=== PATIENT | male | born 1955 | race Caucasian/White ===

== ENCOUNTER 2023-09-03 20:20 | Observation (INO) | payer OTHER, SELFPAY ==
--- NOTE | ~2023-09-03 | CT_ITS ---
Clinical Indication: Syncope, lower extremity swelling CT Scan of the Chest with Contrast: Technique: Contiguous sections were acquired throughout the chest after intravenous administration of 100 cc of Omnipaque 350. Dose reduction technique was used on this scan by utilizing automated expos ure control and iterative reconstruction technique. The dose-length product (DLP) was 891.96 mGy-cm. Findings: There is no evidence of any significant mediastinal, hilar or axillary lymphadenopathy. There is a pr obable single small embolus within the segmental branches in the right upper lobe (axial image 67). N o other pulmonary embolus evident.. There is no evidence of aortic dissection or aneurysm. There is no evidence of pleural or pericardial effusion. The lungs are clear. No pulmonary nodules or infiltrates are noted. Images through the upper abdomen reveal calcific gallstones and suspected mild bilateral hydronephros is. Impression: Probable single small pulmonary embolus within segmental branch in the right upper lobe. Clear lungs. Reviewed, dictated and finalized at location . Impression: Probable single small pulmonary embolus within segmental branch in the right up per lobe. Clear lungs.
--- NOTE | ~2023-09-03 | XR_ITS ---
EXAMINATION: XR chest 1V portable Exam Date/Time: 09/03/2023 21:10 CDT HISTORY: syncopic episode today Comparison: 06/04/2008. RESULT: Lines, tubes, and devices: None. Lungs and pleura: Lordotic positioning. Low volumes with crowding. Streaky bibasilar atelectasis, ot herwise clear. Cardiomediastinal silhouette: Stable. Other: No acute osseous or upper abdominal finding. IMPRESSION: No acute cardiopulmonary process. Reviewed, dictated and finalized at location K.
--- NOTE | ~2023-09-03 | US_ITS ---
EXAMINATION: US venous doppler [facility] DATE: 09/04/2023 09:57 INDICATION: Left lower limb swelling. TECHNIQUE: Grayscale ultrasound images without and with compression and Doppler ultrasound images of the bilateral lower extremity veins were obtained. COMPARISON: Ultrasound 05/16/2010 FINDINGS: The visualized portions of right common femoral vein, profunda (deep) femoral vein, femoral vein, pop liteal vein, peroneal veins, posterior tibial veins, and greater saphenous vein outflow are patent. The visualized portions of left common femoral vein, profunda femoral vein, femoral vein, popliteal v ein, peroneal veins, posterior tibial veins, and greater saphenous vein outflow are patent. IMPRESSION: 1. No deep venous thrombosis. Reviewed, dictated and finalized at location E.
--- NOTE | ~2023-09-03 | CT_ITS ---
Non-contrast Head CT History: Syncope Technique: Axial non-contrast imaging of the brain was performed. Dose reduction technique was used on this scan by utilizing automated exposure control and iterative reconstruction technique. The dose -length product (DLP) was 756.67 mGy-cm. Findings: There is no evidence of intracranial hemorrhage, mass lesion, or acute infarct. Brain par enchyma appears normal. The ventricles and subarachnoid spaces are normal in size. The calvarium ap pears normal. The visualized paranasal sinuses and mastoid air cells are clear. Impression: No significant abnormality seen. Reviewed, dictated and finalized at location . Impression: No significant abnormality seen.
[2023-09-03 20:22] VITALS: BP 129/77; PULSE 78; RESP 18; TEMP 36.2; O2SAT 96
--- NOTE | 2023-09-03 20:59 | ECG_ITS ---
Measurements Intervals [place] Rate: 58 P: 68 NH: 238 QRS: -1 QRSD: 88 T: 1 QT: 376 QTc: 372 Interpretive Statements SINUS BRADYCARDIA WITH FIRST DEGREE AV BLOCK LOW QRS VOLTAGE IN PRECORDIAL LEADS [QRS DEFLECTION < 1.0 mV IN CHEST LEADS] ABNORMAL ECG NO PREVIOUS ECG AVAILABLE FOR COMPARISON Electronically Signed On 09-04-2023 8:49:51 CDT by Himanshu Villela M.D.
--- NOTE | 2023-09-03 21:18 | ED.DIZZY ---
HPI - Dizziness General Chief Complaint: Syncope <Andrzej Horne PA-C - Last Filed: 09/04/23 02:17> Stated Complaint: Syncope 2 hours ago <Andrzej Horne PA-C - Last Filed: 09/04/23 02:17> Time Seen by Provider: 09/03/23 20:44 <Andrzej Horne PA-C - Last Filed: 09/04/23 02:17> Source: patient <MARYBEL Arriola Last Filed: 09/04/23 02:17> Mode of arrival: ambulatory <MARYBEL Arriola Last Filed: 09/04/23 02:17> Limitations: no limitations <Andrzej Horne PA-C - Last Filed: 09/04/23 02:17> History of Present Illness HPI Narrative: This is a 68-year-old male with PMH of A-fib, PE, DVT, HTN who presents to the ED with chief complaint of syncopal episode that occurred just prior to arrival. Patient reports that he was seated at his dining room table and was changing the channel and does not remember anything else. Denies any prodromal phase. States that he remembers his saying that she is going to call 911 when he came to. Denies any recent chest pain or shortness of breath. He states he feels fine here in the emergency department. He notes that he has chronic bilateral mild leg swelling and left seems a little bit more swollen than right. States that he does not drink a lot of water. Denies fevers, chills, cough, palpitations, urinary problems. Additionally endorses past history of atrial fibrillation and had a cardiac ablation in 2010. He states he takes metoprolol but has not had any problems with A-fib since the ablation. Reports that he has followed with Dr. Pratt. <Andrzej Horne PA-C - Last Filed: 09/04/23 02:17> Related Data Home Medications: Home Medications Medication Instructions Recorded Confirmed aspirin 81 mg tablet,delayed 81 mg PO DAILY 06/30/20 09/04/23 release (Adult Aspirin Regimen) brimonidine 0.2 % eye drops 1 drop ophthalmic (eye) Q8H 06/30/20 09/04/23 spironolactone 25 mg tablet 25 mg PO DAILY 06/30/20 09/04/23 diphenhydramine HCl 25 mg capsule 25 mg PO TID PRN allergies 08/28/23 09/04/23 (Benadryl) <Andrzej Horne PA-C - Last Filed: 09/04/23 02:17> Allergies/Adverse Reactions: Allergies Allergy/AdvReac Type Severity Reaction Status Date / Time No Known Allergies Allergy Verified 09/03/23 21:29 <Andrzej Horne PA-C - Last Filed: 09/04/23 02:17> Review of Systems Review of Systems: All systems as dictated in HPI <Andrzej Horne PA-C - Last Filed: 09/04/23 02:17> [facility] Past Medical History Medical History: Medical History COVID-19 Personal history of other malignant neoplasms of lymphoid, hematopoietic and related tissues Personal history of pulmonary embolism <Andrzej Horne PA-C - Last Filed: 09/04/23 02:17> Surgical History Surgical History: Surgical History History of radiofrequency ablation (RFA) procedure for cardiac arrhythmia <Andrzej Horne PA-C - Last Filed: 09/04/23 02:17> Family History Family History: Family History Sibling Family history of malignant neoplasm Family history of atrial fibrillation Father Family history of lung cancer Patient's father is Mother Patient's mother is <Andrzej Horne PA-C - Last Filed: 09/04/23 02:17> Social History Social History: Social History Smoking status: Never smoker Second hand tobacco smoke exposure: No Alcohol intake: current Drinks per week: 2 Substance use: never Substance use type: does not use Lack of Transportation: No Lack of Food: Never True Current Housing: I Have Housing Concerned About Future Housing: No Difficulty Paying Gas/Electric Bills: No Difficulty Paying for Meds: No Currently Unemployed: No Education: Bachelor's Degree
[2023-09-03 21:39] LABS: Basophils Percent Auto 0.2 % (0.2-1.2); Eosinophils Percent Auto 0.2 % (0-4.4); Hematocrit 48.6 % (42.0-52.0); Immature Granulocyte Absolute 0.06 K/mm3 (0.00-0.031); Immature Granulocyte Percent A 0.5 % (0-0.5); Lymphocytes Percent Auto 6.4 % (18.3-44.2); Mean Corpuscular HGB Conc 32.9 g/dl (32-36); Mean Corpuscular Hemoglobin 30.7 pg (26-34); Mean Corpuscular Volume 93.1 fl (80-100); Mean Platelet Volume 10.1 fl (7.4-10.4); Monocytes Absolute Auto 0.7 K/mm3 (0.1-0.6); Monocytes Percent Auto 5.5 % (2.6-8.5); Neutrophils Absolute Auto 10.9 K/mm3 (1.3-6.7); Neutrophils Percent Auto 87.2 % (45.5-73.1); Platelet Count Result 279 k/mm3 (150-375); Red Blood Count 5.22 M/mm3 (4.6-6.20); Red Cell Distribution Width 13.3 % (11.5-14.5); White Blood Count 12.5 K/mm3 (4.5-10.0)
[2023-09-03 21:55] LABS: Alanine Aminotransferase 27 U/L (6-50); Albumin Level 3.8 g/dL (3.5-5.1); Alkaline Phosphatase 62 U/L (38-126); Anion Gap 6 mmol/L (8-16); Aspartate Amino Transferase 33 U/L (17-59); Bilirubin,Total 0.8 mg/dL (0.2-1.3); Blood Urea Nitrogen 18 mg/dL (9-20); Calcium 9.2 mg/dL (8.4-10.2); Carbon Dioxide 28 mmol/L (22-30); Chloride 101 mmol/L (98-107); Estimated CRCL calculation 83 ml/min; Estimated Glomerular Filt Rate > 60; Glucose 108 mg/dL (65-110); Potassium 4.6 mmol/L (3.4-5.0); Sodium 135 mmol/L (137-145)
[2023-09-03 21:59] LABS: NT Pro B Type Natriuretic Pept 229 pg/mL (19.9-100)
[2023-09-03] MEDS: SODIUM CHLORIDE 0.9% IV 1,000 ML 999 ML IV CONT (22:34)
[2023-09-03 23:14] LABS: Appearance Urine Clear (Clear); Bilirubin Urine Negative (Negative); Blood Urine Negative (Negative); Color Urine Yellow (Yellow); Glucose Urine UA Negative (Negative); Ketones Urine Negative (Negative); Leukocyte Esterase Ur Negative LEU/UL (Negative); Nitrate Urine Negative (Negative); Protein Urine Negative (Negative); Specific Grav Ur 1.018 (1.001-1.035); Urobilinogen Urine 0.2 mg/dL (<2.0); pH Urine 7.5 (5.0-9.0)
[2023-09-03 23:21] LABS: Add Urine Microscopic? NO
[2023-09-04] VITALS (13 sets, daily range): BP systolic 101–125; BP diastolic 63–84; PULSE 56–81; RESP 14–20; TEMP 35.8–36.7; O2SAT 95–98; BMI 35.0
--- NOTE | 2023-09-04 | ECHO_ITS ---
Patient Info Name: Zachariah Figueroa Age: 68 years : 1955 Gender: Male Ht: 69 in Wt: 237 lbs BSA: 2.33 m2 HR: 62 bpm BP: 101 / 80 mmHg Heart Rhythm: Sinus Rhythm Technical Quality: Fair Exam Date: 09/04/2023 3:04 PM Exam Location: [facility] Patient Status: Outpatient Admit Date: 09/04/2023 Staff Ordering Physician: Aggie Chahal APRN Envelope Fold Operator: Janie Martin RDCS Attending Provider: Sue Rubin DO Exam Type: CA echo dop color flow w con Study Info Indications - PE Complete two-dimensional, color flow and Doppler transthoracic echocardiogram is performed with contrast to opacify the left ventricle and to improve the deliniation of the left ventricle endocardial borders. Contrast/Agitated Saline Contrast/Ag. Saline: Definity Amount: 2.00 ml Administered By: Janie Martin RDCS Existing IV Access: Yes IV Access Condition: patent with no signs of infiltration Summary 1. Normal left ventricular size, thickness systolic and diastolic function. 2. Definity contrast used to improve visualization. 3. Trivial amount of aortic valve regurgitation. 4. Modestly dilated left atria. Left Ventricle Left ventricular chamber dimension is normal. Left ventricular systolic function is normal, estimated at 60-65%. The left ventricular diastolic function is normal. Right Ventricle Right ventricular chamber dimension is normal. Left Atria Left atrial chamber dimension is mildly enlarged. Right Atria Right atrial chamber dimension is normal. Aortic Valve The aortic valve is trileaflet. There is mild aortic valve sclerosis. There is trace aortic valve regurgitation. Pulmonic Valve The pulmonic valve is normal. Mitral Valve The mitral valve has normal leaflets. Tricuspid Valve The tricuspid valve leaflets are normal. Pericardium/Pleural The pericardium appears normal. Aorta The aortic root size at the sinus of Valsalva is normal. Left Ventricular Outflow Tract Name Value Normal LVOT 2D LVOT Diameter 2.50 cm LVOT Doppler LVOT Peak Gradient 2 mmHg LVOT Mean Gradient 1 mmHg LVOT VTI 17.78 cm LVOT VTI/AV VTI Ratio 0.68 LVOT Stroke Volume 87.09 ml LVOT CO 4.90 l/min LVOT CI 2.11 L/min/m2 Pulmonic Valve Name Value Normal RVOT Doppler RVOT Peak Gradient 1 mmHg PV Doppler PV Peak Gradient 2 mmHg Mitral Valve Name Value Normal MV Doppler
--- NOTE | 2023-09-04 03:02 | ADMGEN ---
This patient, Zachariah Figueroa, was admitted to [facility] Surg Room 321-. Patient/family oriented to hospital policies and general routines including ID bracelet, bed and alarms, visiting hours, pain management, procedures, bathroom and other care routines, personal items, smoking policy, room service/diet, and visiting hours. Information on how to activate the Rapid Response Team has been discussed. Patient/Family are encouraged to report perceived risks to care and to ask questions if they do not understand what they are told or what they should do.
--- NOTE | 2023-09-04 08:10 | PM.IMHP ---
H&P: HPI History of Present Illness Date/Time: 09/04/23 08:10 Chief Complaint: Patient is a 68 YO male with PMH of A-fib, PE, DVT, and HTN admitted from the ED after a syncopal episode that evening while sitting down in the living room to have dinner with his . Narrative: He was holding the remote about to change the channel when he felt like he was about to fall into a deep sleep. He thought he was only out for 2-3 seconds, but his approximated closer to 30 seconds. Denies any prodromal phase. States that he remembers his saying that she is going to call 911 when he came to. He denies any head trauma or fall from the episode. Denies any chest pain, dyspnea or shortness of breath. He did vomit one time directly after standing up to walk into the kitchen after coming to. He reports they both had what they believe to be the flu a few weeks prior, but had both fully recovered. He had not felt anything out of the ordinary during the day. He denies unusual fatigue, weakness or He feels fine this morning and is not in any distress. He has chronic bilateral mild leg swelling and left seems a little bit more swollen than right, but that is his baseline. He does not use compression socks at home. Denies fevers, chills, cough, palpitations, urinary problems. He has a past history of atrial fibrillation and had a cardiac ablation in 2010 and has not had any issues since. He had bilateral PE and DVT at the same time in his history. Reports that he has followed with Dr. Pratt, whom he just saw last week for follow up with no concerns or changes. Review of Systems Review of Systems: All systems reviewed & are unremarkable except as noted in HPI and below PMFSH Past Medical History Medical History (Updated 09/04/23 @ 08:23 by Aggie Chahal APRN) COVID-19 History of DVT of lower extremity Personal history of other malignant neoplasms of lymphoid, hematopoietic and related tissues Personal history of pulmonary embolism Surgical History Surgical History History of radiofrequency ablation (RFA) procedure for cardiac arrhythmia Family History Family History Sibling Family history of malignant neoplasm Family history of atrial fibrillation Father Family history of lung cancer Patient's father is Mother Patient's mother is Social History Social History Smoking status: Never smoker Second hand tobacco smoke exposure: No Alcohol intake: current Drinks per week: 2 Substance use: never Substance use type: does not use Lack of Transportation: No Lack of Food: Never True Current Housing: I Have Housing Concerned About Future Housing: No Difficulty Paying Gas/Electric Bills: No Difficulty Paying for Meds: No Currently Unemployed: No Education: Bachelor's Degree Difficulty w/ Childcare or Family Care: No Spiritual care concerns: No Meds Home Medications and Allergies Home Medications Medication Instructions Recorded Confirmed Type aspirin 81 mg tablet,delayed 81 mg PO DAILY 06/30/20 09/04/23 History release (Adult Aspirin Regimen) brimonidine 0.2 % eye drops 1 drop ophthalmic (eye) Q8H 06/30/20 09/04/23 History spironolactone 25 mg tablet 25 mg PO DAILY 06/30/20 09/04/23 History metoprolol succinate 100 mg 100 mg PO DAILY #90 tabs 05/23/23 09/04/23 Rx tablet,extended release 24 hr (Toprol XL) potassium chloride 20 mEq See Rx Instructions .Route 08/21/23 09/04/23 Rx tablet,extended release(part/cryst) .COMPLEX #90 tabs atorvastatin 10 mg tablet 10 mg PO DAILY #90 tabs 08/28/23 09/04/23 Rx diphenhydramine HCl 25 mg capsule 25 mg PO TID PRN allergies 08/28/23 09/04/23 History (Benadryl) Allergies Allergy/AdvReac Type Severity Reaction Status Date / Time No
[2023-09-04] MEDS: ATORVASTATIN 10 MG TABLET PO (09:13)
[2023-09-04] MEDS: POTASSIUM CHLORIDE 20 MEQ ER TABLET PO (09:13)
[2023-09-04] MEDS: METOPROLOL SUCCINATE EXT REL 100 MG TABCR PO (09:13)
[2023-09-04] MEDS: SPIRONOLACTONE 25 MG TABLET PO (09:13)
[2023-09-04] MEDS: ENOXAPARIN 120 MG/0.8 ML SYRINGE 110 MG SUB-Q ×2 (09:14→21:08)
[2023-09-04 10:56] LABS: Prothrombin Time 13.8 Seconds (11.1-14.7)
[2023-09-04] MEDS: PERFLUTREN LIPID MICROSPHERES 1.5 ML VIAL DILUTED TO 10 ML TOTAL VOLUME IV PUSH (15:46)
[2023-09-04] MEDS: BRIMONIDINE TARTRATE 0.2% OP SOLN 5 ML BTL 1 DROP EACH EYE ×2 (15:50→21:13)
--- NOTE | 2023-09-04 16:28 | IVDEFINITY ---
Prior to administration of IV Definity the patient was educated on the risks and benefits of the imaging enhancing agent including potential adverse side effects. The patient verbalized understanding. Allergies were verified. No exclusion criteria were identified and at least one of the following inclusion criteria were met: 1) physician request, 2) patient technically difficult to image (per the [place] [employer] guidelines of two or more segments not discernable within the apical view), or 3) questionable left ventricular function. ?
--- NOTE | 2023-09-04 16:33 | PM.CNCAR ---
Assessment and Plan Assessment and plan (1) Paroxysmal atrial fibrillation: Code(s): I48.0 - Paroxysmal atrial fibrillation Status: Acute (2) Syncope: Code(s): R55 - Syncope and collapse Status: Acute Plan This is a 68-year-old man with a history of atrial fibrillation in the remote past. When antiarrhythmic drug therapy was not helpful he underwent a radiofrequency ablation which provided a very successful outcome he has not had any recurrences of atrial fib in about 12 years. He enters the hospital last night of breath syncopal episode that occurred will use sitting in a chair in his home. He from the spontaneously. His telemetry since being in the hospital shows sinus rhythm with first-degree AV block but no abnormalities or findings that would explain the syncopal event. An echocardiogram is appropriate that has been performed this afternoon. If that study is free of significant new pathology can probably be discharged. I will see the patient in my office for appropriate follow-up after this event. If he has recurrent syncopal events then of course we would not need to consider additional monitoring or possibly implanting a loop recorder Justen Pratt MD [facility] History of Present Illness History of Present Illness Consult date/time: 09/04/23 16:33 Reason For Visit: Syncope Narrative: This is a 68-year-old man known to me with a history of paroxysmal atrial fibrillation who has been seen in my office for a long time. He presented to the hospital last night after a syncopal episode that occurred in his home and we in this setting I am asked to see him in consultation. The patient had a history of paroxysmal atrial fibrillation for which we had treated him with a variety of antiarrhythmic drugs in the past with no significant successful response. He was referred to an electrical & instrumentation supervisor performed radiofrequency ablation back in 2010. Since his ablation procedure he has had no further documented episodes of or symptoms to suggest recurrence of atrial fibrillation. When he was diagnosed he was obviously very young his chads Vasc score was low and we did not elect to can not continue lifelong anticoagulation. Around the same time as his AF event he also had a pulmonary embolism and he was at that time for a period of time anticoagulated with warfarin. He was seen in my office as recently as last week and was doing well at that time it we had just been seeing each other on an annual basis in recent years. He states that yesterday he was at home he was sat on a chair in his living room to watch some television with his he grabbed the remote control he remembers putting 1 button and after that obviously lost consciousness because he remembers nothing else at all until he regained consciousness. His was in the next room she thinks altogether he was unresponsive for about 15 or 20 seconds. He then had some snoring when he was regaining consciousness and then he woke up and seemed to be rest centrally comfortable sheath says that for a period of time after he regained responsiveness he was a bit confused but that cleared very shortly and after that he was free of complaints he was brought to the hospital for further evaluation. Since being hospitalized his ECG shows sinus rhythm with first-degree AV block there are no other knee is or findings on telemetry that would explain a syncopal event. He did have an echocardiogram done this afternoon in the hospital that that has yet to be interpreted at the time of this dictation. He had a CTA done of his chest which according to report shows a small right upper lobe pulmonary embolism. The decision has been made for him on systemic anticoagulation was started on apixaban for this. He is otherwise offering no complaints and feels well at this time. Review of Systems Constitutional: Constitutional: Reports no additional constitutional complaints Eyes: Eyes: Reports
[2023-09-05] VITALS (8 sets, daily range): BP systolic 99–121; BP diastolic 64–76; PULSE 53–58; RESP 14–16; TEMP 36.2–36.3; O2SAT 96–98
[2023-09-05] MEDS: BRIMONIDINE TARTRATE 0.2% OP SOLN 5 ML BTL 1 DROP EACH EYE ×2 (06:05→14:25)
[2023-09-05 08:20] LABS: Hematocrit 46.8 % (42.0-52.0); Hemoglobin 15.2 g/dL (14.0-18.0); Mean Corpuscular HGB Conc 32.5 g/dl (32-36); Mean Corpuscular Hemoglobin 30.8 pg (26-34); Mean Corpuscular Volume 94.7 fl (80-100); Mean Platelet Volume 9.7 fl (7.4-10.4); Platelet Count Result 250 k/mm3 (150-375); Red Blood Count 4.94 M/mm3 (4.6-6.20); Red Cell Distribution Width 13.6 % (11.5-14.5); White Blood Count 7.1 K/mm3 (4.5-10.0)
[2023-09-05 08:39] LABS: Prothrombin Time 13.5 Seconds (11.1-14.7)
[2023-09-05] MEDS: ATORVASTATIN 10 MG TABLET PO (09:35)
[2023-09-05] MEDS: ENOXAPARIN 120 MG/0.8 ML SYRINGE 110 MG SUB-Q (09:37)
[2023-09-05] MEDS: SPIRONOLACTONE 25 MG TABLET PO (09:39)
[2023-09-05] MEDS: METOPROLOL SUCCINATE EXT REL 100 MG TABCR PO (09:40)
--- NOTE | 2023-09-05 15:52 | PM.DS ---
DS: Admitting Diagnosis Discharge Date 09/05/23 Admitting Diagnosis syncope DS: Discharge Diagnosis Discharge Diagnosis (1) Pulmonary embolism: Code(s): I26.99 - Other pulmonary embolism without acute cor pulmonale Status: Acute Assessment and Plan: history of bilateral PE CTA chest showed probable PE in the right lobe on 09/04/23 PT/INR labs ordered - INR 1.0 Venous doppler study negative for DVT in bilateral lower ext Started Lovenox 1 mg/1kg BID and will transition to Eliquis for d/c (2) Syncope: Code(s): R55 - Syncope and collapse Status: Acute Assessment and Plan: CT brain showed no acute intracranial hemorrhage. No significant mass effect or midline shift.? No evidence for cortical infarct.?No skull fracture. Incidental findings: Chronic parenchymal involutional changes and mid periventricular deep white matter presumed microvascular changes.? Indeterminate ovoid hypodense areas within the skull at the midline occiput and in the right parietal bone at the vertex.?No significant overlying soft tissue abnormality CMP largely unremarkable.? BNP unremarkable.? UA grossly negative. (3) Paroxysmal atrial fibrillation: Code(s): I48.0 - Paroxysmal atrial fibrillation Status: Acute Assessment and Plan: Clinical Practitioner Dr. Pratt, s/p ablation and has been controlled ever since hold at home aspirin, started on Lovenox BID and will transition to Eliquis takes Metropolol 100 mg daily (4) Essential (primary) hypertension: Code(s): I10 - Essential (primary) hypertension Status: Acute Assessment and Plan: controlled with spironolactone, controlled takes potassium 20 mEq daily DS: Summary Hospital Course Hospital Course: Patient is a 68 YO male with PMH of A-fib, PE, DVT, and HTN admitted from the ED after a syncopal episode that evening while sitting down in the living room to have dinner with his . He has chronic bilateral mild leg swelling and left seems a little bit more swollen than right, but that is his baseline. He does not use compression socks at home. Denies fevers, chills, cough, palpitations, urinary problems. He has a past history of atrial fibrillation and had a cardiac ablation in 2010 and has not had any issues since. He had bilateral PE and DVT at the same time in his history. Reports that he has followed with Dr. Pratt, whom he just saw last week for follow up with no concerns or changes. CT scan showed probable small PE in right lobe. We started him on Lovenox transitioned to Eliquis for d/c today and to follow up with Dr. Pratt. ECHO showed no remarkable acute changes and cleared per cardiology for discharge home today. Patient has been asymptomatic and runs in the upper 50's HR at baseline. Stopped aspirin for now as we are starting Eliquis until further follow up. He was able to ambulate on his own home with his . Status at Discharge Functional status at discharge: independent ambulation Overall status at discharge: patient is back to baseline Time Spent with Patient Time attestation: Total time spent providing and/or coordinating discharge services: Exam Narrative: GENERAL: Well-appearing, well-nourished, and in no acute distress. HEAD: Normocephalic, atraumatic. EYES: PERRLA and EOM intact. ENT: Nares clear, no rhinorrhea or epistaxis. Mucous membranes moist. Oropharynx without tonsillar hypertrophy exudate or other lesions. NECK: Supple. No adenopathy or masses. CHEST: No respiratory distress. Clear to auscultation. No wheezes rales or rhonchi HEART: RRR. No murmur heard. Normal peripheral pulses. ABDOMEN: Soft, nontender, nondistended, normal active bowel sounds. MSK: Normal range of motion. Mild bilateral edema, left greater than right SKIN: Warm, dry, no rash. NEURO: Alert and oriented x4. No focal deficits. PSYCH: Normal mood and affect. Pleasant and talkitive. DS: Data Data Complete
== END 2023-09-05 14:30 | disposition home or self-care (01) ==
LOC: ANHED 09-04 02:17 → ANH3MEDSUR 09-04 02:34
PROVIDERS: Nurse Practitioner; Admitting Provider Internal Medicine; Emergency Provider Physician Assistant; PCP Family Medicine; Visit Provider Internal Medicine
DX: I26.99 Other pulmonary embolism without acute cor pulmonale (principal); R55 Syncope and collapse; I48.0 Paroxysmal atrial fibrillation; I10 Essential (primary) hypertension; R60.0 Localized edema; I35.8 Other nonrheumatic aortic valve disorders; R94.31 Abnormal electrocardiogram [ECG] [EKG]; F10.90 Alcohol use, unspecified, uncomplicated; Z86.16 Personal history of COVID-19; Z86.718 Personal history of other venous thrombosis and embolism; Z85.79 Personal history of other malignant neoplasms of lymphoid, hematopoietic and related tissues; Z79.82 Long term (current) use of aspirin; Z79.899 Other long term (current) drug therapy
CPT/HCPCS: 36415; 70450; 71045; 71275; 80053; 81003; 83735; 83880; 85025; 85027; 85610; 93005; 93970; 96361; 96372; 96374; 99285; A9270; C8929; G0378; J1650; J7030; Q9957; Q9967

== ENCOUNTER 2025-09-17 01:29 | Day surgery (SDC) | payer OTHER, SELFPAY ==
[2025-09-11 12:07] VITALS: BMI 31.7
--- NOTE | 2025-09-11 12:57 | PC.NURSE ---
Spoke with patient regarding medication Eliquis. Patient verbalizes understanding that the last dose is to be taken on 09/13/2025 and the Endoscopist will instruct them when to restart after the procedure.
--- OUTSIDE RECORDS SUMMARY | 2025-09-17 01:33 | XMS_ITS ---
Author Organization Unknown ENCOUNTERS Encounter Performer Location Date Diagnosis Diagnosis Status Outpatient [facility] [address] [place] [address] [id number] Observation [facility] [address] [place] [address] [id number] JACKIE Pre Admit [facility] [address] [place] [address] [id number] Emergency [facility] [address] [place] [address] [id number] PAT *Note: Encounters from your own facility or health system may be excluded. Allergies, Adverse Reactions, Alerts Allergen Type Severity Identification Date Medications Name Date Quantity Days Supplied GPI Number
--- OUTSIDE RECORDS SUMMARY | 2025-09-17 01:33 | XMS_ITS | Clinical Summary ---
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 Gender Identity Not on file Sexual Orientation Not on file Plan of Treatment Health Maintenance Due Date Last Done Comments DTAP/TDAP/TD VACCINES (1 - Tdap) 1974 COLORECTAL SCREENING 2000 Colorectal Cancer Screening 2000 FIT-DNA Q 3 years 2000 FIT/FOBT Q 1 year 2000 Flex Sig/CT Colonography Q 5 years 2000 PNEUMOCOCCAL VACCINE 50+ YEARS (1 of 1 - PCV) 07/17/20 05 ZOSTER VACCINE (1 of 2) 2005 Preventative Visit- Commercial 11/06/2024 INFLUENZA VACCINE (#1) 2025 RSV VACCINE (60+ or ) (1 - 1-dose 75+ series) 2030 Insurance [employer] BLUE ACCESS/TRUE BLUE PPO Care Teams Fish Farmer Relationship Specialty Start Date End Date Nilesh Kang MD [address] [place] [address] PCP - General 10/06/09
--- OUTSIDE RECORDS SUMMARY | 2025-09-17 01:33 | XMS_ITS | Encounter Summary ---
Author Organization [facility] Address 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 Gender Identity Not on file Sexual Orientation Not on file documented as of this encounter Plan of Treatment Not on file documented as of this encounter Procedures Procedure Name Priority Date/Time Associated Diagnosis Comments MAGNESIUM LEVEL Routine 05/11/2009 8:50 AM CDT COMPREHENSIVE METABOLIC PANEL Routine 05/11/2009 8:50 AM CDT documented in this encounter Results * (ABNORMAL) COMPREHENSIVE METABOLIC PANEL (05/11/2009 8:50 AM CDT) ALKALINE PHOSPHATASE 88 40 - 129 U/L [facility] CO2 25 22 - 30 mmol/L [facility] BILIRUBIN TOTAL 0.3 0.2 - 1.0 mg/dL [facility] POTASSIUM 3.7 3.5 - 4.9 mmol/L [facility] TOTAL PROTEIN 6.7 6.3 - 8.6 g/dL [facility] GLUCOSE 91 65 - 99 mg/dL [facility] AST 19 12 - 38 U/L [facility] BUN 24(H) 6 - 20 mg/dL [facility] CALCIUM 9.0 8.6 - 10.2 mg/dL [facility] ALBUMIN 3.8 3.4 - 4.8 g/dL [facility] CHLORIDE 103 96 - 108 mmol/L [facility] CREATININE 0.79 0.67 - 1.17 mg/dL [facility] ALT 17 0 - 41 U/L [facility] SODIUM 137 135 - 145 mmol/L [facility] GFR, >60 >=60 mL/min/1.7 sq meter [facility] GFR >60 >=60 mL/min/1.7 sq meter [facility] Comment: Modification of Diet in Renal Disease (MDRD) study formula. Estimated GFR rate interpretative information for both Americans and non- Americans is available on the [facility] Intranet at: [email or web address] Select: Lab Policies and Procedures Select: Reference Ranges - GFR 05/11/2009 8:50 AM CDT 05/11/2009 8:57 AM CDT Brenda Peraza MD CHEMISTRY ORDERABLES Edited INTERFACE SYSTEM Refer to clinic/hospital department [facility] CLIA# [id number] [address] [place] [address] * MAGNESIUM LEVEL (05/11/2009 8:50 AM CDT) MAGNESIUM 2.4 1.5 - 2.5 mg/dL [facility] 05/11/2009 8:50 AM CDT 05/11/2009 8:57 AM CDT Brenda Peraza MD CHEMISTRY ORDERABLES Final Re sult INTERFACE SYSTEM Refer to clinic/hospital department [facility] CLIA# [id number] [address] [place] [address] documented in this encounter Visit Diagnoses Diagnosis Atrial fibrillation (CMS/HCC) Atrial fibrillation documented in this encounter Care Teams Senior Actuarial Analyst Relationship Specialty Start Date End Date Nilesh Kang MD [address] [place] [address] PCP - General 10/06/09 documented as of this encounter
--- OUTSIDE RECORDS SUMMARY | 2025-09-17 01:33 | XMS_ITS | Encounter Summary ---
Author Organization [facility] Address 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
[2025-09-17 08:21] VITALS: BP 130/76; PULSE 75; RESP 18; TEMP 36.1; O2SAT 97
[2025-09-17] MEDS: LACTATED RINGERS 1,000 ML 150 ML IV CONT (08:34)
--- NOTE | 2025-09-17 08:52 | P.PNAN_ITS ---
Anes - Initial Pre Proc Eval Procedure: Operation Date: 09/17/25 09:30 Proposed Procedures p Screening Colonoscopy - Yair Day MD Date/Time: 09/17/25 08:52 Surgeon: Yair Day MD Pre Op Diagnosis: Personal history of colon polyps, unspecified Patient Data Age: 70 Gender: M Height: 1.75 m Weight: 94 kg Last Vital Signs Temp 36.1 C L 09/17/25 08:21 Pulse 75 09/17/25 08:21 Resp 18 09/17/25 08:21 BP 130/76 09/17/25 08:21 Pulse Ox 97 09/17/25 08:21 O2 Del Method Room Air 09/17/25 08:21 Allergies Allergy/AdvReac Type Severity Reaction Status Date / Time No Known Allergies Allergy Verified 09/17/25 08:20 Home Medications ?Medication ?Instructions ?Recorded ?Confirmed ?Type spironolactone 25 mg tablet 25 mg PO DAILY 06/30/20 History diphenhydramine HCl 25 mg capsule 25 mg PO TID PRN all ergies 08/28/23 09/11/25 History (Benadryl) apixaban 5 mg tablet (Eliquis) 5 mg PO Q12HR #74 tabs 09/05/23 09/17/25 Rx brimonidine 0.2 % eye drops 1 drp ophthalmic (eye) BID 03/05/25 09/11/25 History atorvastatin 10 mg tablet See Rx Instructions .Route 1 11/08/24 09/11/25 Rx .COMPLEX #90 tabs metoprolol succinate 100 mg 50 mg (1/2 x 100 mg) PO DA MARIELA #90 09/08/25 09/11/25 Rx tablet,extended release 24 hr tabs potassium chloride 20 mEq See Rx Instructions .Route 1 11/08/24 09/11/25 Rx tablet,extended .COMPLEX #90 tabs release(part/cryst) (Klor-Con M) Patient hx anesthesia problems: none Family hx anesthesia problems: none Results Review: All pre-operative results and documents have been reviewed as part of the pre- operative evaluation. [facility] Past Medical History Medical History History of DVT of lower extremity COVID-19 Personal history of other malignant neoplasms of lymphoid, hematopoietic and related tissues Personal history of pulmonary embolism Surgical History Surgical History History of radiofrequency ablation (RFA) procedure for cardiac arrhythmia Family History Family History Sibling Family history of malignant neoplasm Family history of atrial fibrillation Father Family history of lung cancer Patient's father is Mother Patient's mother is Social History Social History Smoking status: Never smoker Second hand tobacco smoke exposure: No Alcohol intake: current Drinks per week: 2 Substance use: never Substance use type: does not use Do You Feel Safe in your Home?: Yes Lack of Transportation: No Lack of Food: Never True Current Housing: I Have Housing Concerned About Future Housing: No Difficulty Paying Gas/Electric Bills: No Difficulty Paying for Meds: No Currently Unemployed: No Education: Bachelor's Degree Difficulty w/ Childcare or Family Care: No Living arrangements: with family Occupation/Education: retired Gender identity (if verbalized by the patient): Male Sexual Orientation (if Verbalized by the Patient): Straight or Heterosexual Spiritual care concerns: No Agree to blood products: Yes Anes - Eval Final PreProcedure Day of Procedure 09/17/25 08:52 Patient weight: obese Heart: regular rate and rhythm Lungs: clear to auscultation Airway: Mallampati scale class II Neurological: alert and oriented Last oral intake: >/= 8 hours ASA classification: III Emergent: no Anesthetic plan: proceed Anesthesia type and monitoring: general GIVS and standard monitoring Results Review: All pre-operative results and documents have been reviewed as part of the pre- operative evaluation. Informed Consent: The patient's anesthetic plan and its attendant risks and benefits were discussed with the patient/family/POA. Questions were solicited and answers provided to the satisfaction of the patient/family/POA.
--- NOTE | 2025-09-17 09:33 | P.HP_ITS ---
H&P: HPI History of Present Illness Date/Time: 09/17/25 09:33 Chief Complaint: History of colon polyps Narrative: The patient has a history of colonic polyps, the last colonoscopy was in 2019. Review of Systems Review of Systems: All systems reviewed & are unremarkable except as noted in HPI and below PMFSH Past Medical History Medical History History of DVT of lower extremity COVID-19 Personal history of other malignant neoplasms of lymphoid, hematopoietic and related tissues Personal history of pulmonary embolism Surgical History Surgical History History of radiofrequency ablation (RFA) procedure for cardiac arrhythmia Family History Family History Sibling Family history of malignant neoplasm Family history of atrial fibrillation Father Family history of lung cancer Patient's father is Mother Patient's mother is Social History Social History Smoking status: Never smoker Second hand tobacco smoke exposure: No Alcohol intake: current Drinks per week: 2 Substance use: never Substance use type: does not use Do You Feel Safe in your Home?: Yes Lack of Transportation: No Lack of Food: Never True Current Housing: I Have Housing Concerned About Future Housing: No Difficulty Paying Gas/Electric Bills: No Difficulty Paying for Meds: No Currently Unemployed: No Education: Bachelor's Degree Difficulty w/ Childcare or Family Care: No Living arrangements: with family Occupation/Education: retired Gender identity (if verbalized by the patient): Male Sexual Orientation (if Verbalized by the Patient): Straight or Heterosexual Spiritual care concerns: No Agree to blood products: Yes Meds Home Medications and Allergies Home Medications ?Medication ?Instructions ?Recorded ?Confirmed ?Type spironolactone 25 mg tablet 25 mg PO DAILY 06/30/20 History diphenhydramine HCl 25 mg capsule 25 mg PO TID PRN all ergies 08/28/23 09/11/25 History (Benadryl) apixaban 5 mg tablet (Eliquis) 5 mg PO Q12HR #74 tabs 09/05/23 09/17/25 Rx brimonidine 0.2 % eye drops 1 drp ophthalmic (eye) BID 03/05/25 09/11/25 History atorvastatin 10 mg tablet See Rx Instructions .Route 1 11/08/24 09/11/25 Rx .COMPLEX #90 tabs metoprolol succinate 100 mg 50 mg (1/2 x 100 mg) PO DA MARIELA #90 09/08/25 09/11/25 Rx tablet,extended release 24 hr tabs potassium chloride 20 mEq See Rx Instructions .Route 1 11/08/24 09/11/25 Rx tablet,extended .COMPLEX #90 tabs release(part/cryst) (Klor-Con M) Allergies Allergy/AdvReac Type Severity Reaction Status Date / Time No Known Allergies Allergy Verified 09/17/25 08:20 Vital Signs Vital Signs - 24 hr 09/17/25 08:21 Temperature 97 F L Pulse Rate 75 Respiratory Rate 18 Blood Pressure 130/76 Pulse Oximetry 97 Oxygen Delivery Room Air Exam Const: General: cooperative and healthy appearing Resp: Effort & Inspection: normal respiratory effort and able to speak in complete sentences Auscultation: clear to auscultation bilaterally Cardio: Rate: regular rate Rhythm: regular rhythm GI: Inspection: normal to inspection GI Palp: No No hepatosplenomegaly present Auscultation: normal bowel sounds Rectal Exam: deferred Skin: General skin exam: normal color Psych: Appearance: grossly normal Mental Status: mental status grossly norm al Assessment and Plan Assessment and plan (1) History of colonic polyps: Code(s): Z86.0100 - Personal history of colon polyps, unspecified Status: Acute Assessment and Plan: The patient is deemed a good candidate for the procedure. Consent signed. Will proceed.
--- NOTE | 2025-09-17 10:01 | S_PTH ---
PATIENT: Zachariah Figueroa LOC: [facility]#:[id number] AGE/SX: 70/M ROOM: RE09/17/[address]: Yair Day MD : 1955 BED: DIS: 09/17/2025 SPEC #: [id number] RECD: 09/17/25 11:02 STATUS: SHAYY RESabine #: [id number] DEXTER: 09/17/25 10:[address]: Yair Day DEPT: [facility] Surgical RECD BY: Merry Holliday ENTERED: 09/17/25 11:04 SP TYPE: Surgical OTHR DR: Pratibha Chen, FILIBERTO Tissues: A - Colon Polypectomy B - Colon Polypectomy C - Colon Polypectomy D - Colon Polypectomy E - Colon Polypectomy Procedures: Hematoxylin and Eosin Stain Gross and Microscopic Level 4
[2025-09-17 10:02] VITALS: BP 108/58; PULSE 59; RESP 17; O2SAT 97
[2025-09-17 10:12] VITALS: BP 113/70; PULSE 59; RESP 19; O2SAT 97
[2025-09-17 10:22] VITALS: BP 127/86; PULSE 59; RESP 18; O2SAT 98
== END 2025-09-17 10:39 | disposition home or self-care (01) ==
PROVIDERS: PCP Nurse Practitioner Family; Referring Provider Nurse Practitioner Family; Visit Provider Internal Medicine Gastroenterology
PROC: 0DJD8ZZ Inspection of Lower Intestinal Tract, Via Natural or Artificial Opening Endoscopic (ICD-10-PCS; CPT 45378; principal; 2025-09-17 09:30)
DX: Z12.11 Encounter for screening for malignant neoplasm of colon (principal); D12.0 Benign neoplasm of cecum; D12.2 Benign neoplasm of ascending colon; D12.3 Benign neoplasm of transverse colon; D12.4 Benign neoplasm of descending colon; D12.5 Benign neoplasm of sigmoid colon; K64.8 Other hemorrhoids; E66.9 Obesity, unspecified; Z68.30 Body mass index [BMI] 30.0-30.9, adult
CPT/HCPCS: 45385; 88305; J2003; J2704; J7120